=== PATIENT | male | born 1965 | race African-American/Black ===

== ENCOUNTER 2017-03-16 09:09 | Inpatient (IN) | payer MEDICAID ==
[~2017-03-16] VITALS: Ht 175.3 cm; Wt 72.6 kg
[2017-03-16 09:30] VITALS: BP 131/90
[2017-03-16] MEDS ORDERED: Morphine Sulfate 4mg/ml Inj IVP ONE (09:45)
[2017-03-16] MEDS ORDERED: Tubing IV Cassette IV ONE (09:46)
[2017-03-16 10:05] LABS: MEAN CORPUSCULAR HEMOGLOBIN 37.9 PG (27.0-31.0); MEAN CORPUSCULAR HGB CONC 33.9 G/DL (32.0-36.0); MEAN CORPUSCULAR VOLUME 112 FL (80-99); MEAN PLATELET VOLUME 7.7 FL (6.5-10.1); PLATELET COUNT 280 K/UL (150-450); RED BLOOD COUNT 2.69 M/UL (4.70-6.10); RED CELL DISTRIBUTION WIDTH 13.8 % (11.6-14.8); WHITE BLOOD COUNT 13.1 K/UL (4.8-10.8)
[2017-03-16 10:10] LABS: INR 1.1 (0.9-1.1); PROTHROMBIN TIME 11.2 SEC (9.30-11.50)
[2017-03-16] MEDS ORDERED: AMLODIPINE BESYL5 MG ORAL (10:14)
[2017-03-16 10:30] VITALS: BP 137/101
[2017-03-16 10:31] LABS: ALANINE AMINOTRANSFERASE 28 U/L (12-78); ALBUMIN/GLOBULIN RATIO 0.3 (1.0-2.7); ANION GAP 14 mmol/L (5-15); ASPARTATE AMINO TRANSFERASE 65 U/L (15-37); CALCIUM 8.3 MG/DL (8.5-10.1); CARBON DIOXIDE 21 MMOL/L (21-32); CHLORIDE 103 MMOL/L (98-107); CREATININE 2.1 MG/DL (0.55-1.30); GLOMERULAR FILTRATION RATE 40.6 mL/min (>60); LIPASE 374 U/L (73-393); SODIUM 138 MMOL/L (136-145)
[2017-03-16 10:32] LABS: ANISOCYTOSIS 1+; BAND NEUTROPHILS % (MANUAL) 0 % (0-8); BASOPHILS % (MANUAL) 0 % (0-2); EOSINOPHILS % (MANUAL) 3 % (0-3); HYPOCHROMASIA 1+; LYMPHOCYTES % (MANUAL) 23 % (20-45); MACROCYTES 2+; NEUTROPHILS % (MANUAL) 69 % (45-75); PLATELET ESTIMATE ADEQUATE; PLATELET MORPHOLOGY NORMAL; TOTAL CELLS COUNTED 100
[2017-03-16 10:33] LABS: POTASSIUM 2.6 MMOL/L (3.5-5.1)
[2017-03-16 10:36] LABS: BILIRUBIN,DIRECT 4.9 MG/DL (0.0-0.3)
--- NOTE | 2017-03-16 11:41 | Diagnostic Imaging Report ---
Indication: Abdominal distention and pain Technique: Spiral acquisitions obtained through the abdomen and pelvis. No oral contrast utilized, per emergency room physician request No IV contrast utilized, due to renal insufficiency. Multiplanar reconstructions were generated. Total dose length product 670 mGycm. CTDIvol(s) 12 mGy. Dose reduction achieved using automated exposure control Comparison: None Findings: Lack of enteric contrast limits assessment of the GI tract. There is a moderate amount of ascites fluid present. There is mild congestion of the mesenteric fat. The appendix is normal. There is no evidence of diverticulosis or diverticulitis. There is equivocal mild wall thickening of the ascending and proximal transverse colon. There is suggestion of wall thickening of the proximal jejunum, and focally dilated gas-filled jejunal loops are seen in the left anterior upper abdomen. Transition to normal caliber small bowel appears gradual. No free intraperitoneal air is demonstrated. The distal esophagus appears to be diffusely thick walled. The stomach is nondistended, grossly unremarkable. Lack of IV contrast limits assessment of solid organs. The liver is slightly small, demonstrates equivocal slight surface irregularity. No definite focal abnormality The gallbladder contains gallstones. It is nondistended. No gross biliary ductal dilatation. The pancreas, spleen, adrenals, right kidney are unremarkable. Questionable subtle subcentimeter low-attenuation lesion seen in the lower pole of the left kidney No retroperitoneal or mesenteric mass or adenopathy. There are atherosclerotic vascular calcifications. There is mild ectasia of the right common iliac artery, which is nonetheless not frankly aneurysmal. No pelvic mass or adenopathy. There is mild edema of the subcutaneous fat, particularly inferiorly. There is a 13 mm cystic lesion immediately deep to the left nipple. The lung bases demonstrate atelectatic change and possibly some scarring. There is trace right pleural fluid. There is a small to moderate left pleural effusion. The bones are unremarkable. Impression: Equivocally slightly small liver with equivocal slight surface nodularity, could indicate early cirrhotic change. Correlate with clinical history and findings Moderate ascites Other manifestations of mild anasarca, including edema of the mesenteric and subcutaneous fat, trace right and small to moderate left pleural effusions Limited assessment of the GI tract given the absence of enteric contrast administration. There is possibly proximal jejunal wall thickening, which could indicate enteritis. There is focal gaseous distention of a loop of proximal jejunum, also possibly indicating enteritis or could represent a focal ileus. Partial small bowel obstruction as etiology of this finding is deemed less likely but possible Suggestion of ascending and proximal transverse colonic wall thickening, could indicate colitis Cholelithiasis 13 mm cystic lesion immediately deep to the left nipple, presumably a cutaneous lesion such as a sebaceous cyst. Correlate with clinical findings Basilar pulmonary atelectatic changes and possible scarring Questionable subtle left lower pole renal subcentimeter low-attenuation lesion; if real, most likely benign simple cortical cyst. No further followup necessary The CT scanner at [facility] is accredited by the [employer] and the scans are performed using protocols designed to limit radiation exposure to as low as reasonably achievable to attain images of sufficient resolution adequate for diagnostic evaluation.
[2017-03-16 12:00] VITALS: BP 118/83
[2017-03-16 12:09] LABS: APPEARANCE,URINE CLEAR; KETONES,URINE NEGATIVE (NEGATIVE); LEUKOCYTE ESTERASE ,URINE 1+ (NEGATIVE); NITRITE,URINE NEGATIVE (NEGATIVE); PH,URINE 6.5 (4.5-8.0); PROTEIN,URINE 2+ (NEGATIVE); UROBILINOGEN,URINE 8 MG/DL (0.0-1.0)
[2017-03-16 12:51] LABS: BACTERIA,URINE OCCASIONAL /HPF; RBC,URINE 0-2 /HPF (0 - 0); SQUAMOUS EPITHELIAL CELL,UR OCCASIONAL /LPF (NONE/OCC); WBC,URINE 0-2 /HPF (0 - 0)
--- NOTE | 2017-03-16 13:21 | Emergency Room Report ---
History of Present Illness General Chief Complaint: Abdominal Pain Source: Patient Present Illness HPI 51-year-old male presents ED for evaluation. Patient presents with abdominal pain and distention x1 month. Pain is sharp, 6/10, nonradiating. Denies fevers or chills. Denies chest pain shortness of breath. Denies nausea or vomiting. Daughter at bedside states that she is trying to get patient to see a doctor but he refuses. No other aggravating relieving factors. Denies any other associated symptoms Allergies: Coded Allergies: No Known Allergies (Unverified , 03/16/17) Patient History Past Medical History: HTN Past Surgical History: none Pertinent Family History: none Social History: Denies: smoking, alcohol use, drug use Immunizations: UTD Reviewed Nursing Documentation: PMH: Agreed, PSxH: Agreed Nursing Documentation-PMH Hx Hypertension: Yes Review of Systems All Other Systems: negative except mentioned in HPI Physical Exam Vital Signs Date Time Temp Pulse Resp B/P (MAP) Pulse Ox O2 Delivery O2 Flow Rate FiO2 03/16/17 09:11 97.3 110 16 139/92 97 Room Air Sp02 EP Interpretation: reviewed, normal General Appearance: no apparent distress, alert, GCS 15, non-toxic Head: normocephalic, atraumatic Eyes: bilateral eye normal inspection, bilateral eye PERRL, bilateral eye scleral icterus ENT: hearing grossly normal, normal pharynx, no angioedema, normal voice Neck: full range of motion, supple/symm/no masses Respiratory: chest non-tender, lungs clear, normal breath sounds, speaking full sentences Cardiovascular #1: regular rate, rhythm, no edema Cardiovascular #2: 2+ carotid (R), 2+ carotid (L), 2+ radial (R), 2+ radial (L) , 2+ dorsalis pedis (R), 2+ dorsalis pedis (L) Gastrointestinal: normal bowel sounds, no guarding, no rebound, distended Rectal: deferred Genitourinary: normal inspection, no CVA tenderness Musculoskeletal: back normal, gait/station normal, normal range of motion, non- tender Neurologic: alert, oriented x3, responsive, motor strength/tone normal, sensory intact, speech normal Psychiatric: judgement/insight normal, memory normal, mood/affect normal, no suicidal/homicidal ideation Reflexes: 3+ bicep (R), 3+ bicep (L), 3+ tricep (R), 3+ tricep (L), 3+ knee (R) , 3+ knee (L) Skin: normal color, no rash, warm/dry, well hydrated Lymphatic: no adenopathy Medical Decision Making Diagnostic Impression: Primary Impression: Liver cirrhosis Qualified Codes: K74.60 - Unspecified cirrhosis of liver Additional Impressions: Elevated LFTs Renal insufficiency ER Course Hospital Course 51-year-old male presents ED complaining of abdominal pain and distention x1 month Differential diagnoses include: SBO, cirrhosis, ascites Clinical course Patient placed on stretcher. color television console monitor. After initial history and physical I ordered labs, IV fluids, UA, pain medication and CT scan Labs - noted leukocytosis, Hb/Hct stable, K 2.6, LFTs elevated, BUN/Cr elevated , coags ok CT abdomen and pelvis - cirrhotic changes of liver, ascites noted K repleted Case discussed with Dr. Vázquez and he agreed to accept the patient to his service for further care and support I feel this is a highly complex case requiring extensive working including EKG/ Rhythm strip, Xray/CT/US, Blood/urine lab work, repeat exams while in ED, and administration of strong opiates/narcotics for pain control, admission to hospital or close patient follow up. Diagnosis - liver cirrhosis, elevated LFTs, renal insufficiency Patient admitted to floor in serious condition Labs Test 03/16/17 09:25 03/16/17 11:20 White Blood Count 13.1 K/UL (4.8-10.8) Red Blood Count 2.69 M/UL (4.70-6.10) Hemoglobin 10.2 G/DL (14.2-18.0) Hematocrit 30.1 % (42.0-52.0) Mean Corpuscular Volume 112 FL (80-99) Mean Corpuscular Hemoglobin 37.9 PG (27.0-31.0) Mean Corpuscular Hemoglobin Concent 33.9 G/DL (32.0-36.0) Red Cell Distribution Width 13.8 % (11.6-14.8) Platelet Count 280 K/UL (150-450) Mean Platelet Volume 7.7 FL (6.5-10.1) Neutrophils (%) (Auto) % (45.0-75.0) Lymphocytes (%) (Auto) % (20.0-45.0) Monocytes (%) (Auto) % (1.0-10.0) Eosinophils (%) (Auto) % (0.0-3.0) Basophils (%) (Auto) % (0.0-2.0) Differential Total Cells Counted 100 Neutrophils % (Manual) 69 % (45-75) Lymphocytes % (Manual) 23 % (20-45) Monocytes % (Manual) 5 % (1-10) Eosinophils % (Manual) 3 % (0-3) Basophils % (Manual) 0 % (0-2) Band Neutrophils 0 % (0-8) Platelet Estimate Adequate Platelet Morphology Normal Hypochromasia 1+ Anisocytosis 1+ Macrocytosis 2+ Prothrombin Time 11.2 SEC (9.30-11.50) Prothromb Time International Ratio 1.1 (0.9-1.1) Activated Partial Thromboplast Time 31 SEC (23-33) Sodium Level 138 MMOL/L (136-145) Potassium Level 2.6 MMOL/L (3.5-5.1) Chloride Level 103 MMOL/L (98-107) Carbon Dioxide Level 21 MMOL/L (21-32) Anion Gap 14 mmol/L (5-15) Blood Urea Nitrogen 25 mg/dL (7-18) Creatinine 2.1 MG/DL (0.55-1.30) Estimat Glomerular Filtration Rate 40.6 mL/min (>60) Glucose Level 111 MG/DL (74-106) Calcium Level 8.3 MG/DL (8.5-10.1) Total Bilirubin 5.2 MG/DL (0.2-1.0) Direct Bilirubin 4.9 MG/DL (0.0-0.3) Aspartate Amino Transf (AST/SGOT) 65 U/L (15-37) Alanine Aminotransferase (ALT/SGPT) 28 U/L (12-78) Alkaline Phosphatase 56 U/L (46-116) Total Protein 8.0 G/DL (6.4-8.2) Albumin 1.8 G/DL (3.4-5.0) Globulin 6.2 g/dL Albumin/Globulin Ratio 0.3 (1.0-2.7) Lipase 374 U/L (73-393) Urine Color Yellow Urine Appearance Clear Urine pH 6.5 (4.5-8.0) Urine Specific [place] 1.010 (1.005-1.035) Urine Protein 2+ (NEGATIVE) Urine Glucose (UA) Negative (NEGATIVE) Urine Ketones Negative (NEGATIVE) Urine Occult Blood Negative (NEGATIVE) Urine Nitrite Negative (NEGATIVE) Urine Bilirubin Negative (NEGATIVE) Urine Urobilinogen 8 MG/DL (0.0-1.0) Urine Leukocyte Esterase 1+ (NEGATIVE) Urine RBC 0-2 /HPF (0 - 0) Urine WBC 0-2 /HPF (0 - 0) Urine Squamous Epithelial Cells Occasional /LPF Urine Bacteria Occasional /HPF (NONE) CT/MRI/US Diagnostic Results CT/MRI/US Diagnostic Results : Imaging Test Ordered: CT A/P Impression cirrhotic changes of liver. moderate ascites Last Vital Signs Date Time Temp Pulse Resp B/P (MAP) Pulse Ox O2 Delivery O2 Flow Rate FiO2 03/16/17 12:00 88 18 118/83 98 Room Air 03/16/17 10:20 97.4 Status: improved Disposition: ADMITTED INPATIENT Condition: Serious Referrals: NOT CHOSEN CHRISTY/,REFERRING (PCP) LUIS RED M.D. Mar 16, 2017 13:21
--- NOTE | 2017-03-16 14:05 | GI Initial Consult Note ---
History of Present Illness General Date patient seen: Mar 16, 2017 Time patient seen: 13:54 Reason for Hospitalization: Abdominal Pain Referring physician: MERY COATES Reason for Consultation: CIRRHOSIS Present Illness HPI 51-year-old male presents ED for evaluation. Patient presents with abdominal pain and distention x1 month. Pain is sharp, 6/10, nonradiating. Denies fevers or chills. Denies chest pain shortness of breath. Denies nausea or vomiting. Daughter at bedside states that she is trying to get patient to see a doctor but he refuses. No other aggravating relieving factors. Denies any other associated symptoms. GI consulted for liver failure/ascites. HPI as noted above. Pt seen in ED, awake A&Ox4 NAD with no active s/sx of N/V/D. Presented with abdominal pain today. Abdomen is distended, tympanic non tender. CT AP shows cirrhosis, ascites and colitis. Patient denies any diarrhea, constipation. No history of endoscopic / colonoscopies. Presents today with transaminitis, leukocytosis, elevated total bilirubin, elevated creatinine and hypoalbuminemia. Patient states he has a history of ETOH abuse, but has decreased his ETOH for over a month. Home Meds Reported Medications Amlodipine Besylate* (AMLODIPINE BESYLATE*) 5 Mg Tablet, 5 MG ORAL DAILY, TAB 03/16/17 Med list reviewed/reconciled: Yes Allergies: Coded Allergies: No Known Allergies (Unverified , 03/16/17) Patient History History Provided By: Patient Past Medical History: HTN PMH Narrative Past Medical History: HTN Past Surgical History: none Pertinent Family History: none Social History: Denies: smoking, alcohol use, drug use Immunizations: UTD Reviewed Nursing Documentation: PMH: Agreed, PSxH: Agreed Nursing Documentation-PMH Hx Hypertension: Yes Social History: Reports: alcohol use - abuse Review of Systems All Other Systems: negative except mentioned in HPI Physical Exam Vital Signs Date Time Temp Pulse Resp B/P (MAP) Pulse Ox O2 Delivery O2 Flow Rate FiO2 03/16/17 09:11 97.3 110 16 139/92 97 Room Air Sp02 EP Interpretation: reviewed, normal Labs Laboratory Tests Test 03/16/17 09:25 03/16/17 11:20 White Blood Count 13.1 K/UL (4.8-10.8) H Red Blood Count 2.69 M/UL (4.70-6.10) L Hemoglobin 10.2 G/DL (14.2-18.0) L Hematocrit 30.1 % (42.0-52.0) L Mean Corpuscular Volume 112 FL (80-99) H Mean Corpuscular Hemoglobin 37.9 PG (27.0-31.0) H Mean Corpuscular Hemoglobin Concent 33.9 G/DL (32.0-36.0) Red Cell Distribution Width 13.8 % (11.6-14.8) Platelet Count 280 K/UL (150-450) Mean Platelet Volume 7.7 FL (6.5-10.1) Neutrophils (%) (Auto) % (45.0-75.0) Lymphocytes (%) (Auto) % (20.0-45.0) Monocytes (%) (Auto) % (1.0-10.0) Eosinophils (%) (Auto) % (0.0-3.0) Basophils (%) (Auto) % (0.0-2.0) Differential Total Cells Counted 100 Neutrophils % (Manual) 69 % (45-75) Lymphocytes % (Manual) 23 % (20-45) Monocytes % (Manual) 5 % (1-10) Eosinophils % (Manual) 3 % (0-3) Basophils % (Manual) 0 % (0-2) Band Neutrophils 0 % (0-8) Platelet Estimate Adequate Platelet Morphology Normal Hypochromasia 1+ Anisocytosis 1+ Macrocytosis 2+ Prothrombin Time 11.2 SEC (9.30-11.50) Prothromb Time International Ratio 1.1 (0.9-1.1) Activated Partial Thromboplast Time 31 SEC (23-33) Sodium Level 138 MMOL/L (136-145) Potassium Level 2.6 MMOL/L (3.5-5.1) *L Chloride Level 103 MMOL/L (98-107) Carbon Dioxide Level 21 MMOL/L (21-32) Anion Gap 14 mmol/L (5-15) Blood Urea Nitrogen 25 mg/dL (7-18) H Creatinine 2.1 MG/DL (0.55-1.30) H Estimat Glomerular Filtration Rate 40.6 mL/min (>60) Glucose Level 111 MG/DL (74-106) H Calcium Level 8.3 MG/DL (8.5-10.1) L Total Bilirubin 5.2 MG/DL (0.2-1.0) H Direct Bilirubin 4.9 MG/DL (0.0-0.3) H Aspartate Amino Transf (AST/SGOT) 65 U/L (15-37) H Alanine Aminotransferase (ALT/SGPT) 28 U/L (12-78) Alkaline Phosphatase 56 U/L (46-116) Total Protein 8.0 G/DL (6.4-8.2) Albumin 1.8 G/DL (3.4-5.0) L Globulin 6.2 g/dL Albumin/Globulin Ratio 0.3 (1.0-2.7) L Lipase 374 U/L (73-393) Urine Color Yellow Urine Appearance Clear Urine pH 6.5 (4.5-8.0) Urine Specific [place] 1.010 (1.005-1.035) Urine Protein 2+ (NEGATIVE) H Urine Glucose (UA) Negative (NEGATIVE) Urine Ketones Negative (NEGATIVE) Urine Occult Blood Negative (NEGATIVE) Urine Nitrite Negative (NEGATIVE) Urine Bilirubin Negative (NEGATIVE) Urine Urobilinogen 8 MG/DL (0.0-1.0) H Urine Leukocyte Esterase 1+ (NEGATIVE) H Urine RBC 0-2 /HPF (0 - 0) H Urine WBC 0-2 /HPF (0 - 0) Urine Squamous Epithelial Cells Occasional /LPF Urine Bacteria Occasional /HPF (NONE) General Appearance: well appearing, no apparent distress, alert, thin Head: normocephalic EENT: PERRL/EOMI, normal ENT inspection, other - juandice eyes Neck: supple Respiratory: normal breath sounds, no respiratory distress Cardiovascular: normal rate Gastrointestinal: normal inspection, non tender, soft, normal bowel sounds, distended, ascites, other - tympanic Rectal: deferred Genitourinary: deferred Musculoskeletal: normal inspection, back normal Neurologic: normal inspection, alert, oriented x3, responsive Psychiatric: normal inspection, judgement/insight normal, memory normal Skin: normal inspection, normal color, no rash, warm/dry, palpation normal, well hydrated Lymphatic: normal inspection, no adenopathy GI: Plan Problems: (1) Ascites (2) Anemia (3) Liver cirrhosis (4) Elevated LFTs Plan CT AP reviewed, see full report. - ascites - cirrhosis - colitis lipase WNL okay for low sodium diet, NPO @ MN for abdominal U/S & paracentesis if not done today. albumin x 1 anemia work up OB stool r/o GI bleed monitor H&H, prn transfusions bowel regime >> colace, miralax ppi abx fu labs, hep panel outpatient EGD/colonoscopy Discussed with Dr. Roman. Thank you for this patient referral, we will follow. Angie Syed N.P. Mar 16, 2017 14:05
[2017-03-16 16:00] VITALS: BP 126/91
[2017-03-16 16:34] LABS: PATH BLOOD SMEAR/OMC SENT TO PATHOLOGIST
[2017-03-16] MEDS ORDERED: Lactulose 20gm/30ml UDC ORAL SCH (18:00)
[2017-03-16] MEDS: 1/2NS w/KCl 20mEq 1000ml 1,000 ML IV SCH (18:54)
[2017-03-16] MEDS: Docusate 100mg cap ORAL SCH (18:54)
[2017-03-16 19:57] VITALS: BP 96/67
[2017-03-16] MEDS ORDERED: Piperacillin/Tazobactam 3.375 GM in D5W 110 ML IVPB SCH (20:00)
[2017-03-16] MEDS: Miralax 17gm pkt ORAL SCH (20:20)
[2017-03-17] VITALS (7 sets, daily range): BP systolic 109–134; BP diastolic 68–88
[2017-03-17] MEDS: Piperacillin/Tazobactam 3.375 GM in D5W 55 ML IVPB SCH ×3 (01:39→20:31)
[2017-03-17 07:08] LABS: MEAN CORPUSCULAR HEMOGLOBIN 38.3 PG (27.0-31.0); MEAN CORPUSCULAR VOLUME 113 FL (80-99); MEAN PLATELET VOLUME 7.5 FL (6.5-10.1); PLATELET COUNT 204 K/UL (150-450); RED BLOOD COUNT 2.15 M/UL (4.70-6.10); RED CELL DISTRIBUTION WIDTH 13.6 % (11.6-14.8); WHITE BLOOD COUNT 11.6 K/UL (4.8-10.8)
[2017-03-17 07:21] LABS: HEMOGLOBIN A1C 4.9 % (4.3-6.0)
[2017-03-17 07:41] LABS: MAGNESIUM 1.6 MG/DL (1.8-2.4); PHOSPHORUS 2.8 MG/DL (2.5-4.9)
[2017-03-17] MEDS: 1/2NS w/KCl 20mEq 1000ml 1,000 ML IV SCH (07:50)
[2017-03-17 08:01] LABS: ANISOCYTOSIS 1+; BAND NEUTROPHILS % (MANUAL) 0 % (0-8); BASOPHILS % (MANUAL) 0 % (0-2); EOSINOPHILS % (MANUAL) 1 % (0-3); HYPOCHROMASIA 2+; LYMPHOCYTES % (MANUAL) 17 % (20-45); MACROCYTES 2+; NEUTROPHILS % (MANUAL) 75 % (45-75); PLATELET ESTIMATE ADEQUATE; PLATELET MORPHOLOGY NORMAL; TOTAL CELLS COUNTED 100
[2017-03-17 08:07] LABS: FOLIC ACID 6.2 NG/ML (8.6-58.9); IRON 27 ug/dL (50-175); TOTAL IRON BINDING CAPACITY 75 ug/dL (250-450)
[2017-03-17 08:23] LABS: ALANINE AMINOTRANSFERASE 21 U/L (12-78); ALBUMIN/GLOBULIN RATIO 0.4 (1.0-2.7); ANION GAP 10 mmol/L (5-15); ASPARTATE AMINO TRANSFERASE 41 U/L (15-37); CALCIUM 7.4 MG/DL (8.5-10.1); CARBON DIOXIDE 19 MMOL/L (21-32); CHLORIDE 106 MMOL/L (98-107); CHOLESTEROL 118 MG/DL (< 200); CHOLESTEROL/HDL RATIO 7.4 (3.3-4.4); CREATININE 2.1 MG/DL (0.55-1.30); FERRITIN 714 NG/ML (8-388); GLOMERULAR FILTRATION RATE 40.6 mL/min (>60); POTASSIUM 3.7 MMOL/L (3.5-5.1); SODIUM 135 MMOL/L (136-145); THYROID STIMULATING HORMONE 1.407 uiU/mL (0.358-3.740); TOTAL PROTEIN 5.9 G/DL (6.4-8.2)
[2017-03-17 08:25] LABS: BILIRUBIN,DIRECT 0.1 MG/DL (0.0-0.3)
[2017-03-17 08:40] LABS: RETICULOCYTE COUNT 2.9 % (0.0-2.0)
[2017-03-17] MEDS: Docusate 100mg cap ORAL SCH ×3 (08:51→17:57)
--- NOTE | 2017-03-17 08:58 | Diagnostic Imaging Report ---
Indications: Ascites Technique: Procedural timeout performed. Ultrasound used to localize optimal puncture site. Sterile prepping and draping right lower quadrant . Local anesthesia with 1% lidocaine. Under real-time ultrasound guidance, puncture peritoneal space using paracentesis needle. Stylet removed. Catheter placed to vacuum bottle suction. Total 4.7 liters of clear yellow fluid aspirated. Patient tolerated procedure well, without immediate complication. Findings: Followup sonography demonstrates complete resolution of peritoneal fluid. Impression: Successful ultrasound-guided paracentesis, yielding 4.7 liters of fluid
--- NOTE | 2017-03-17 10:26 | Consultation ---
Consult Note Consult Note asked to evaluate for renal failure- 51-year-old male presents ED for evaluation. Patient presents with abdominal pain and distention x1 month. Pain is sharp, 6/10, nonradiating. Denies fevers or chills. Denies chest pain shortness of breath. Denies nausea or vomiting. Daughter at bedside states that she is trying to get patient to see a doctor but he refuses. No other aggravating relieving factors. Denies any other associated symptoms patient interviewed and examined- data reviewed . Assessment/Plan Status; Renal failure : Acute vs Chronic - Liver cirrhosis, high Bili , Low Alb Elevated LFTs HTN history Evidence of hepatic cirrhosis, with surface micro-nodularity, also reported on prior CT scan Evidence of portal hypertension, with large amount of ascites, anterior abdominal wall varices Cholelithiasis also reported on prior CT. Plan: Optimize GI status Monitor renal paraameters Urine studies kidney TUAN urine studies GILBERTO HAYES Mar 17, 2017 10:25
[2017-03-17 10:28] LABS: OTHERS PATHOLOGIST COMMENT
--- NOTE | 2017-03-17 11:02 | GI Progress Note ---
Assessment/Plan Problems: (1) Ascites ICD Codes: R18.8 - Other ascites SNOMED: 678381267 (2) Anemia ICD Codes: D64.9 - Anemia, unspecified SNOMED: 779279625 (3) Elevated LFTs ICD Codes: R79.89 - Other specified abnormal findings of blood chemistry SNOMED: 912967030, 794287229 (4) Liver cirrhosis ICD Codes: K74.60 - Unspecified cirrhosis of liver SNOMED: 11798431 Qualifiers: Qualified Codes: K74.60 - Unspecified cirrhosis of liver Status: stable Status Narrative Discussed with Dr. Roman. Assessment/Plan CT AP reviewed, see full report. - ascites - cirrhosis - colitis lipase WNL s/p paracentesis yielding 4.4L >> r/o SBP OB stool negative supportive care monitor H&H, prn transfusions bowel regime >> colace, miralax ppi abx fu labs ETOH cessation teaching given outpatient EGD/colonoscopy dc planning Subjective Subjective abdominal pain resolved wants to go home Objective Last 24 Hour Vital Signs Date Time Temp Pulse Resp B/P (MAP) Pulse Ox O2 Delivery O2 Flow Rate FiO2 03/17/17 08:00 97.8 74 12 115/75 99 Room Air 03/17/17 04:00 98.2 94 20 121/73 99 Room Air 03/17/17 04:00 Room Air 03/17/17 00:00 Room Air 03/17/17 00:00 99.8 86 18 125/83 100 Room Air 03/16/17 20:00 Room Air 03/16/17 19:57 98.9 92 18 96/67 99 Room Air 03/16/17 16:00 97.7 86 20 126/91 99 03/16/17 13:35 97.4 88 18 118/83 98 Room Air 03/16/17 12:00 88 18 118/83 98 Room Air Laboratory Tests Test 03/16/17 11:20 03/16/17 16:17 03/16/17 20:45 03/16/17 22:40 Urine Color Yellow Urine Appearance Clear Urine pH 6.5 (4.5-8.0) Urine Specific [place] 1.010 (1.005-1.035) Urine Protein 2+ (NEGATIVE) H Urine Glucose (UA) Negative (NEGATIVE) Urine Ketones Negative (NEGATIVE) Urine Occult Blood Negative (NEGATIVE) Urine Nitrite Negative (NEGATIVE) Urine Bilirubin Negative (NEGATIVE) Urine Urobilinogen 8 MG/DL (0.0-1.0) H Urine Leukocyte Esterase 1+ (NEGATIVE) H Urine RBC 0-2 /HPF (0 - 0) H Urine WBC 0-2 /HPF (0 - 0) Urine Squamous Epithelial Cells Occasional /LPF Urine Bacteria Occasional /HPF (NONE) Body Fluid Albumin Pending Urine Random Sodium 38 MEQ/L (20-110) Stool Occult Blood Negative (NEGATIVE) Test 03/17/17 05:15 White Blood Count 11.6 K/UL (4.8-10.8) H Red Blood Count 2.15 M/UL (4.70-6.10) L Hemoglobin 8.2 G/DL (14.2-18.0) L Hematocrit 24.3 % (42.0-52.0) L Mean Corpuscular Volume 113 FL (80-99) H Mean Corpuscular Hemoglobin 38.3 PG (27.0-31.0) H Mean Corpuscular Hemoglobin Concent 34.0 G/DL (32.0-36.0) Red Cell Distribution Width 13.6 % (11.6-14.8) Platelet Count 204 K/UL (150-450) Mean Platelet Volume 7.5 FL (6.5-10.1) Neutrophils (%) (Auto) % (45.0-75.0) Lymphocytes (%) (Auto) % (20.0-45.0) Monocytes (%) (Auto) % (1.0-10.0) Eosinophils (%) (Auto) % (0.0-3.0) Basophils (%) (Auto) % (0.0-2.0) Differential Total Cells Counted 100 Neutrophils % (Manual) 75 % (45-75) Lymphocytes % (Manual) 17 % (20-45) L Monocytes % (Manual) 7 % (1-10) Eosinophils % (Manual) 1 % (0-3) Basophils % (Manual) 0 % (0-2) Band Neutrophils 0 % (0-8) Platelet Estimate Adequate Platelet Morphology Normal Hypochromasia 2+ Anisocytosis 1+ Macrocytosis 2+ Reticulocyte Count 2.9 % (0.0-2.0) H Sodium Level 135 MMOL/L (136-145) L Potassium Level 3.7 MMOL/L (3.5-5.1) Chloride Level 106 MMOL/L (98-107) Carbon Dioxide Level 19 MMOL/L (21-32) L Anion Gap 10 mmol/L (5-15) Blood Urea Nitrogen 22 mg/dL (7-18) H Creatinine 2.1 MG/DL (0.55-1.30) H Estimat Glomerular Filtration Rate 40.6 mL/min (>60) Glucose Level 97 MG/DL (74-106) Hemoglobin A1c 4.9 % (4.3-6.0) Calcium Level 7.4 MG/DL (8.5-10.1) L Phosphorus Level 2.8 MG/DL (2.5-4.9) Magnesium Level 1.6 MG/DL (1.8-2.4) L Iron Level 27 ug/dL (50-175) L Total Iron Binding Capacity 75 ug/dL (250-450) L Percent Iron Saturation 36 % (15-50) Unsaturated Iron Binding 48 ug/dL (112-346) L Ferritin 714 NG/ML (8-388) H Total Bilirubin 3.4 MG/DL (0.2-1.0) H Direct Bilirubin 0.1 MG/DL (0.0-0.3) Gamma Glutamyl Transpeptidase 286 U/L (5-85) H Aspartate Amino Transf (AST/SGOT) 41 U/L (15-37) H Alanine Aminotransferase (ALT/SGPT) 21 U/L (12-78) Alkaline Phosphatase 53 U/L (46-116) Total Creatine Kinase 33 U/L (26-308) C-Reactive Protein, Quantitative 3.0 mg/dL (0.00-0.90) H Pro-B-Type Natriuretic Peptide 1335 pg/mL (0-125) H Total Protein 5.9 G/DL (6.4-8.2) L Albumin 1.6 G/DL (3.4-5.0) L Globulin 4.3 g/dL Albumin/Globulin Ratio 0.4 (1.0-2.7) L Triglycerides Level 85 MG/DL (30-150) Cholesterol Level 118 MG/DL (< 200) LDL Cholesterol 93 mg/dL (<100) HDL Cholesterol 16 MG/DL (40-60) L Cholesterol/HDL Ratio 7.4 (3.3-4.4) H Vitamin B12 Level 883 PG/ML (193-986) Folate 6.2 NG/ML (8.6-58.9) L Thyroid Stimulating Hormone (TSH) 1.407 uiU/mL (0.358-3.740) Free Thyroxine < 0.10 NG/DL (0.76-1.46) L Microbiology Date/Time Source Procedure Growth Status 03/16/17 16:17 Ascities Fluid Gram Stain - Final Resulted 03/16/17 16:17 Ascities Fluid Body Fluid Culture Pending Resulted Height (Feet): 5 Height (Inches): 9.00 Weight (Pounds): 160 General Appearance: WD/WN, no apparent distress, alert Cardiovascular: normal rate Respiratory/Chest: normal breath sounds, no respiratory distress Abdominal Exam: normal bowel sounds, non tender, soft Extremities: normal range of motion, non-tender Angie Syed N.P. Mar 17, 2017 11:02
[2017-03-17] MEDS: D5NS 1,000 ML IV SCH (11:56)
--- NOTE | 2017-03-17 12:23 | Diagnostic Imaging Report ---
Indication: Abdominal distention, abnormal liver function tests Technique: Mead-scale and duplex images of the upper abdomen were obtained Comparison: CT abdomen pelvis earlier the same day Findings: There is a large amount of ascites fluid. There is also a left pleural effusion incidentally noted. Gallbladder is contracted. It contains multiple echogenic foci which do not shadow but most likely represent calculi. There is apparent gallbladder wall thickening, gallbladder wall measuring 8 mm thick, although this is likely at least in part due to lack of distention. Sonographic Cavazos's sign is negative. Common bile duct measures 3 mm in diameter. No intrahepatic biliary ductal dilatation. Liver demonstrates normal echogenicity. However, there are surface micro-nodularities noted. In addition, anterior abdominal wall varices are demonstrated. Portal vein and hepatic veins are patent. Pancreas is unremarkable. Spleen is unremarkable. Left kidney measures 8.1 cm in length. Right kidney measures 10.5 cm length. Both kidneys demonstrate normal echogenicity. There is no hydronephrosis. No focal abnormality . Non-aneurysmal abdominal aorta . Impression: Evidence of hepatic cirrhosis, with surface micro-nodularity, also reported on prior CT scan Evidence of portal hypertension, with large amount of ascites, anterior abdominal wall varices Cholelithiasis also reported on prior CT. Gallbladder wall thickening is probably partially artifact of nondistention, partially wall edema secondary to the hemodynamic derangements related to hepatocellular disease. However, acute cholecystitis is not completely excludable, and correlation with findings is recommended. Consider hepatobiliary nuclear scan for further evaluation if there is high clinical suspicion Negative for dilated ducts
--- NOTE | 2017-03-17 17:45 | Consultation ---
DATE OF CONSULTATION: 03/17/2017 INFECTIOUS DISEASE CONSULTATION CONSULTING PHYSICIAN: Juan Pablo Hooper M.D. PRIMARY ATTENDING PHYSICIAN: Asha Vázquez M.D. REASON FOR CONSULT: Leukocytosis and ascites. HISTORY OF PRESENT ILLNESS: This is a 51-year-old male, admitted yesterday from home. The patient had a gradual increase in size of belly in the past month. He states that he recently quit alcohol. He has abdominal pain and distention, but no fever. No chills. No other symptoms. He had mild leukocytosis in the ER, elevation of bilirubin, and decreased albumin. CT scan showed ascites. The patient had paracentesis and removal of 4.7 liters of ascitic fluid. PAST MEDICAL HISTORY: Significant for hypertension. PAST SURGICAL HISTORY: He had no surgery before. MEDICATIONS: Zosyn, magnesium sulfate, Protonix, MiraLax, and Colace. SOCIAL HISTORY: Smokes cigar. He states that he quit alcohol recently. He is single. PHYSICAL EXAMINATION: VITAL SIGNS: Temperature 97.8 degrees, pulse 74, and blood pressure is 115/75. GENERAL APPEARANCE: No acute distress. Awake, alert, and oriented x3. HEAD AND NECK: [place] conjunctivae. HEART: Regular. LUNGS: Clear. ABDOMEN: Distended with ascites. EXTREMITIES: He has no edema. LABORATORY AND DIAGNOSTIC DATA: Sodium 135, potassium 3.7, chloride 106, bicarbonate 18, BUN 22, creatinine 2.1, and glucose is 97. Bilirubin is 3.4, coming down from 5.2. Albumin is 1.6. CT scan of the abdomen and pelvis showed cholelithiasis, ascites that was moderate, small liver with surface nodularity, and questionable colitis. IMPRESSION: Alcoholic cirrhosis with ascites. The patient has mild leukocytosis. We will try to rule out spontaneous bacterial peritonitis. Although the patient has some colitis evidence on CT scan, he does not have any clinical sign of colitis. The patient has acute renal failure, anemia, decreased albumin, and hypokalemia. RECOMMENDATION: We will continue Zosyn. We will follow up the peritoneal fluid culture. If the culture remains negative, we will stop antibiotics soon. We will ask for hepatitis B and C serology. At the end of my exam, I thank Dr. Vázquez for involving me in the care of this patient. Juan Pablo Hooper M.D. DR: Bk JOB#: [id number] CC:
[2017-03-17] MEDS: Miralax 17gm pkt ORAL SCH (20:32)
--- NOTE | 2017-03-17 23:15 | History and Physical Report ---
DATE OF ADMISSION: 03/16/2017 REASON FOR ADMISSION: Hypokalemia, acute renal failure, and elevated total bilirubin. HISTORY OF PRESENT ILLNESS: The patient has liver failure, most likely cirrhosis due to alcohol abuse. CT showed ascites. The patient also has leukocytosis. I asked him what is the reason for coming in to the hospital. He stated that he had abdominal pain and he had worsening swelling in his abdomen. Denies shortness of breath. Denies cough. Denies nausea, vomiting, or diarrhea. He does have also chronic back pain. Denies fever or chills. PAST MEDICAL HISTORY: liver cirrhosis, renal insufficiency, elevated LFTs, anemia, ascites, history of hyponatremia, and hypertension. Also, chronic back pain. . PAST SURGICAL HISTORY: None. MEDICATIONS: Norvasc. ALLERGIES: No known allergies. SOCIAL HISTORY: History of drug and alcohol abuse and history of smoking. FAMILY HISTORY: Noncontributory. REVIEW OF SYSTEMS: HEENT: Denies headaches. RESPIRATORY: Denies shortness of breath. Denies cough. CARDIOVASCULAR: Denies chest pain. No orthopnea. GASTROINTESTINAL: Reports mild abdominal pain and worsening abdominal swelling. Denies diarrhea. Denies vomiting. Denies nausea. EXTREMITIES: He does have chronic back pain. NEUROLOGIC: Significant change in speech pattern. PHYSICAL EXAMINATION: VITAL SIGNS: Temperature 97.7 degrees, pulse is 86, and blood pressure 126/91. HEENT: PERRLA. NECK: Supple. No lymphadenopathy. CHEST: Clear to auscultation. HEART: No murmurs or extra sounds. GASTROINTESTINAL: Abdomen is distended. He has positive fluid wave. Otherwise, abdomen is soft. Positive bowel sounds. EXTREMITIES: No edema. Reflexes equal on both sides. He is able to move all four extremities. LABORATORY STUDIES: WBC of 14.1, hemoglobin 10.2, and platelets of 280,000. Sodium 138, potassium 2.6, BUN of 25, creatinine 2.5, and glucose of 111. Total bilirubin of 5.2. AST of 65 and ALT of 28. ASSESSMENT AND PLAN: Severe hypokalemia, ascites, alcoholic cirrhosis, acute renal failure, most likely due to dehydration as well as leukocytosis. I have asked Dr. Roman, Dr. Dai, and Dr. Magallanes to see the patient for above-mentioned diagnoses and treatment. Antibiotics per Dr. Delia Dai or his associate. Asha Vázquez M.D. DR: Jeff JOB#: [id number] CC:
[2017-03-18 03:57] VITALS: BP 120/79
[2017-03-18] MEDS: D5NS 1,000 ML IV SCH (07:30)
[2017-03-18 07:58] LABS: ANION GAP 11 mmol/L (5-15); CALCIUM 7.5 MG/DL (8.5-10.1); CARBON DIOXIDE 19 MMOL/L (21-32); CHLORIDE 104 MMOL/L (98-107); GLOMERULAR FILTRATION RATE 42.9 mL/min (>60); MAGNESIUM 1.8 MG/DL (1.8-2.4); MEAN CORPUSCULAR HEMOGLOBIN 38.8 PG (27.0-31.0); MEAN CORPUSCULAR HGB CONC 34.2 G/DL (32.0-36.0); MEAN CORPUSCULAR VOLUME 114 FL (80-99); MEAN PLATELET VOLUME 7.8 FL (6.5-10.1); PLATELET COUNT 206 K/UL (150-450); POTASSIUM 3.9 MMOL/L (3.5-5.1); RED BLOOD COUNT 2.27 M/UL (4.70-6.10); RED CELL DISTRIBUTION WIDTH 13.5 % (11.6-14.8); SODIUM 134 MMOL/L (136-145); WHITE BLOOD COUNT 14.5 K/UL (4.8-10.8)
[2017-03-18 08:15] VITALS: BP 112/85
[2017-03-18 08:29] LABS: HYPOCHROMASIA 1+; MACROCYTES 1+; PLATELET ESTIMATE ADEQUATE; PLATELET MORPHOLOGY NORMAL
[2017-03-18 08:34] LABS: EOSINOPHILS % (MANUAL) 5 % (0-3); LYMPHOCYTES % (MANUAL) 12 % (20-45); NEUTROPHILS % (MANUAL) 72 % (45-75); TOTAL CELLS COUNTED 100
[2017-03-18 08:36] LABS: BAND NEUTROPHILS % (MANUAL) 0 % (0-8); BASOPHILS % (MANUAL) 0 % (0-2)
[2017-03-18] MEDS: Docusate 100mg cap ORAL SCH ×3 (09:07→17:02)
[2017-03-18] MEDS: Piperacillin/Tazobactam 3.375 GM in D5W 55 ML IVPB SCH (10:17)
--- NOTE | 2017-03-18 10:18 | GI Progress Note ---
Assessment/Plan Problems: (1) Ascites ICD Codes: R18.8 - Other ascites SNOMED: 146640331 (2) Anemia ICD Codes: D64.9 - Anemia, unspecified SNOMED: 409143418 (3) Elevated LFTs ICD Codes: R79.89 - Other specified abnormal findings of blood chemistry SNOMED: 372616012, 574251939 (4) Liver cirrhosis ICD Codes: K74.60 - Unspecified cirrhosis of liver SNOMED: 01707004 Qualifiers: Qualified Codes: K74.60 - Unspecified cirrhosis of liver Status: stable Status Narrative Discussed with Dr. Roman. Assessment/Plan CT AP reviewed, see full report. - ascites - cirrhosis - colitis abdominal U/S reviewed >> Evidence of hepatic cirrhosis. Evidence of portal hypertension, with large amount of ascites, anterior abdominal wall varices. lipase WNL s/p paracentesis yielding 4.4L >> r/o SBP OB stool negative hep panel negative supportive care dc home med norvasc 5mg >> start propranolol 10mg BID >> titrate prn SBP >100 HR >60 monitor H&H, prn transfusions bowel regime >> colace, miralax ppi abx fu labs ETOH cessation teaching given recommend outpatient EGD/colonoscopy dc planning Subjective Subjective abdominal pain resolved Objective Last 24 Hour Vital Signs Date Time Temp Pulse Resp B/P (MAP) Pulse Ox O2 Delivery O2 Flow Rate FiO2 03/18/17 08:15 97.3 88 21 112/85 97 Room Air 03/18/17 03:57 97.6 87 20 120/79 99 Room Air 03/17/17 23:18 98.2 93 20 115/73 100 Room Air 03/17/17 20:17 97.6 87 20 134/88 100 Room Air 03/17/17 16:15 98.2 89 20 126/88 100 03/17/17 12:00 98.0 77 12 109/68 97 Room Air Intake and Output 03/18/17 03/19/17 19:00 07:00 Intake Total 240 ml Balance 240 ml Intake Oral 240 ml Laboratory Tests Test 03/17/17 12:00 03/18/17 06:21 03/18/17 08:00 Urine Random Sodium 20 MEQ/L (20-110) White Blood Count 14.5 K/UL (4.8-10.8) H Red Blood Count 2.27 M/UL (4.70-6.10) L Hemoglobin 8.8 G/DL (14.2-18.0) L Hematocrit 25.8 % (42.0-52.0) L Mean Corpuscular Volume 114 FL (80-99) H Mean Corpuscular Hemoglobin 38.8 PG (27.0-31.0) H Mean Corpuscular Hemoglobin Concent 34.2 G/DL (32.0-36.0) Red Cell Distribution Width 13.5 % (11.6-14.8) Platelet Count 206 K/UL (150-450) Mean Platelet Volume 7.8 FL (6.5-10.1) Neutrophils (%) (Auto) % (45.0-75.0) Lymphocytes (%) (Auto) % (20.0-45.0) Monocytes (%) (Auto) % (1.0-10.0) Eosinophils (%) (Auto) % (0.0-3.0) Basophils (%) (Auto) % (0.0-2.0) Differential Total Cells Counted 100 Neutrophils % (Manual) 72 % (45-75) Lymphocytes % (Manual) 12 % (20-45) L Monocytes % (Manual) 11 % (1-10) H Eosinophils % (Manual) 5 % (0-3) H Basophils % (Manual) 0 % (0-2) Band Neutrophils 0 % (0-8) Platelet Estimate Adequate Platelet Morphology Normal Hypochromasia 1+ Macrocytosis 1+ Sodium Level 134 MMOL/L (136-145) L Potassium Level 3.9 MMOL/L (3.5-5.1) Chloride Level 104 MMOL/L (98-107) Carbon Dioxide Level 19 MMOL/L (21-32) L Anion Gap 11 mmol/L (5-15) Blood Urea Nitrogen 18 mg/dL (7-18) Creatinine 2.0 MG/DL (0.55-1.30) H Estimat Glomerular Filtration Rate 42.9 mL/min (>60) Glucose Level 89 MG/DL (74-106) Calcium Level 7.5 MG/DL (8.5-10.1) L Magnesium Level 1.8 MG/DL (1.8-2.4) Urine Eosinophils Pending Height (Feet): 5 Height (Inches): 9.00 Weight (Pounds): 160 General Appearance: WD/WN, no apparent distress, alert, thin Cardiovascular: normal rate Respiratory/Chest: normal breath sounds, no respiratory distress Abdominal Exam: normal bowel sounds, non tender, soft, distended, ascites Extremities: normal range of motion, non-tender Angie Syed N.P. Mar 18, 2017 10:18
[2017-03-18 12:15] VITALS: BP 127/84
--- NOTE | 2017-03-18 12:48 | Nephrology Progress Note ---
Assessment/Plan Problem List: (1) Renal insufficiency (2) Liver cirrhosis (3) Anemia (4) Ascites Assessment Renal failure : Acute vs Chronic - Liver cirrhosis, high Bili , Low Alb Elevated LFTs HTN history Evidence of hepatic cirrhosis, with surface micro-nodularity, also reported on prior CT scan Evidence of portal hypertension, with large amount of ascites, anterior abdominal wall varices Cholelithiasis also reported on prior CT. Plan Plan: Optimize GI status Monitor renal paraameters Urine studies kidney TUAN negative on abdominal TUAN urine studies Subjective ROS Limited/Unobtainable: No Constitutional: Reports: malaise Objective Objective Last 24 Hour Vital Signs Date Time Temp Pulse Resp B/P (MAP) Pulse Ox O2 Delivery O2 Flow Rate FiO2 03/18/17 08:15 97.3 88 21 112/85 97 Room Air 03/18/17 03:57 97.6 87 20 120/79 99 Room Air 03/17/17 23:18 98.2 93 20 115/73 100 Room Air 03/17/17 20:17 97.6 87 20 134/88 100 Room Air 03/17/17 16:15 98.2 89 20 126/88 100 Intake and Output 03/18/17 03/19/17 19:00 07:00 Intake Total 240 ml Balance 240 ml Intake Oral 240 ml Laboratory Tests 03/18/17 06:21: White Blood Count 14.5H, Red Blood Count 2.27L, Hemoglobin 8.8L, Hematocrit 25.8L, Mean Corpuscular Volume 114H, Mean Corpuscular Hemoglobin 38.8H, Mean Corpuscular Hemoglobin Concent 34.2, Red Cell Distribution Width 13.5, Platelet Count 206, Mean Platelet Volume 7.8, Neutrophils (%) (Auto) , Lymphocytes (%) ( Auto) , Monocytes (%) (Auto) , Eosinophils (%) (Auto) , Basophils (%) (Auto) , Differential Total Cells Counted 100, Neutrophils % (Manual) 72, Lymphocytes % ( Manual) 12L, Monocytes % (Manual) 11H, Eosinophils % (Manual) 5H, Basophils % ( Manual) 0, Band Neutrophils 0, Platelet Estimate Adequate, Platelet Morphology Normal, Hypochromasia 1+, Macrocytosis 1+, Sodium Level 134L, Potassium Level 3.9, Chloride Level 104, Carbon Dioxide Level 19L, Anion Gap 11, Blood Urea Nitrogen 18, Creatinine 2.0H, Estimat Glomerular Filtration Rate 42.9, Glucose Level 89, Calcium Level 7.5L, Magnesium Level 1.8 03/18/17 08:00: Urine Eosinophils None seen Height (Feet): 5 Height (Inches): 9.00 Weight (Pounds): 160 General Appearance: no apparent distress Cardiovascular: regular rhythm Respiratory/Chest: decreased breath sounds Abdomen: distended Objective no other changes GILBERTO HAYES Mar 18, 2017 12:48
--- NOTE | 2017-03-18 13:16 | Infectious Diseases Prog Note ---
Assessment/Plan Assessment/Plan A; Leukocytosis Alcoholic cirrhosis Portal HPN Ascites Renal failure Anemia P; Discontinue Zosyn will f/u cultures Subjective ROS Limited/Unobtainable: No Constitutional: Reports: no symptoms Respiratory: Reports: no symptoms Cardiovascular: Reports: no symptoms Gastrointestinal/Abdominal: Reports: diarrhea Genitourinary: Reports: no symptoms Allergies: Coded Allergies: No Known Allergies (Unverified , 03/16/17) Objective Vital Signs Last 24 Hour Vital Signs Date Time Temp Pulse Resp B/P (MAP) Pulse Ox O2 Delivery O2 Flow Rate FiO2 03/18/17 12:15 98.1 89 22 127/84 100 Room Air 03/18/17 08:15 97.3 88 21 112/85 97 Room Air 03/18/17 03:57 97.6 87 20 120/79 99 Room Air 03/17/17 23:18 98.2 93 20 115/73 100 Room Air 03/17/17 20:17 97.6 87 20 134/88 100 Room Air 03/17/17 16:15 98.2 89 20 126/88 100 Height (Feet): 5 Height (Inches): 9.00 Weight (Pounds): 160 General Appearance: no acute distress HEENT: mucous membranes moist Respiratory/Chest: lungs clear Cardiovascular: normal rate Abdomen: distended, other - ascites Extremities: no edema Neurologic/Psychiatric: alert, oriented x 3, responsive Microbiology Date/Time Source Procedure Growth Status 03/16/17 16:17 Ascities Fluid Gram Stain - Final Resulted 03/16/17 16:17 Ascities Fluid Body Fluid Culture - Preliminary Resulted Laboratory Tests Test 03/18/17 06:21 03/18/17 08:00 White Blood Count 14.5 K/UL (4.8-10.8) H Red Blood Count 2.27 M/UL (4.70-6.10) L Hemoglobin 8.8 G/DL (14.2-18.0) L Hematocrit 25.8 % (42.0-52.0) L Mean Corpuscular Volume 114 FL (80-99) H Mean Corpuscular Hemoglobin 38.8 PG (27.0-31.0) H Mean Corpuscular Hemoglobin Concent 34.2 G/DL (32.0-36.0) Red Cell Distribution Width 13.5 % (11.6-14.8) Platelet Count 206 K/UL (150-450) Mean Platelet Volume 7.8 FL (6.5-10.1) Neutrophils (%) (Auto) % (45.0-75.0) Lymphocytes (%) (Auto) % (20.0-45.0) Monocytes (%) (Auto) % (1.0-10.0) Eosinophils (%) (Auto) % (0.0-3.0) Basophils (%) (Auto) % (0.0-2.0) Differential Total Cells Counted 100 Neutrophils % (Manual) 72 % (45-75) Lymphocytes % (Manual) 12 % (20-45) L Monocytes % (Manual) 11 % (1-10) H Eosinophils % (Manual) 5 % (0-3) H Basophils % (Manual) 0 % (0-2) Band Neutrophils 0 % (0-8) Platelet Estimate Adequate Platelet Morphology Normal Hypochromasia 1+ Macrocytosis 1+ Sodium Level 134 MMOL/L (136-145) L Potassium Level 3.9 MMOL/L (3.5-5.1) Chloride Level 104 MMOL/L (98-107) Carbon Dioxide Level 19 MMOL/L (21-32) L Anion Gap 11 mmol/L (5-15) Blood Urea Nitrogen 18 mg/dL (7-18) Creatinine 2.0 MG/DL (0.55-1.30) H Estimat Glomerular Filtration Rate 42.9 mL/min (>60) Glucose Level 89 MG/DL (74-106) Calcium Level 7.5 MG/DL (8.5-10.1) L Magnesium Level 1.8 MG/DL (1.8-2.4) Urine Eosinophils None seen Current Medications Medications (Trade) Dose Ordered Sig/Adam Route PRN Reason Start Time Stop Time Status Last Admin Dose Admin Dextrose/Sodium Chloride 1,000 ml @ 50 mls/hr Q20H IV 03/17/17 11:30 04/16/17 11:29 03/17/17 11:56 Docusate Sodium (Colace) 100 mg THREE TIMES A DAY ORAL 03/16/17 18:00 04/15/17 17:59 03/18/17 13:06 Folic Acid (Folate) 2 mg DAILY ORAL 03/17/17 11:30 04/16/17 11:29 03/18/17 09:07 Pantoprazole (Protonix) 40 mg DAILY ORAL 03/17/17 09:00 04/16/17 08:59 03/18/17 09:07 Piperacillin Sod/ Tazobactam Sod 3.375 gm/Dextrose 55 ml @ 13.75 mls/ hr Q12HR IVPB 03/17/17 21:00 03/24/17 20:59 03/18/17 10:17 Polyethylene Glycol (Miralax) 17 gm BEDTIME ORAL 03/16/17 21:00 04/15/17 20:59 03/16/17 20:20 Propranolol HCl (Inderal) 10 mg BID ORAL 03/18/17 18:00 04/17/17 17:59 MAURIZIO ABREU Mar 18, 2017 13:16
[2017-03-18] MEDS ORDERED: 1/2 NS 1000ml IV ONE (13:38)
[2017-03-18] MEDS ORDERED: Tubing IV Secondary IV ONE (13:38)
[2017-03-18 16:04] VITALS: BP 123/80
[2017-03-18] MEDS: Propranolol 10mg tab ORAL SCH (17:02)
--- NOTE | 2017-03-18 19:04 | General Progress Note ---
Assessment/Plan Problem List: (1) Renal insufficiency ICD Codes: N28.9 - Disorder of kidney and ureter, unspecified SNOMED: 923851994, 195828490 (2) Liver cirrhosis ICD Codes: K74.60 - Unspecified cirrhosis of liver SNOMED: 49772952 Qualifiers: Qualified Codes: K74.60 - Unspecified cirrhosis of liver (3) Elevated LFTs ICD Codes: R79.89 - Other specified abnormal findings of blood chemistry SNOMED: 985230176, 630915634 (4) Anemia ICD Codes: D64.9 - Anemia, unspecified SNOMED: 483946207 (5) Ascites ICD Codes: R18.8 - Other ascites SNOMED: 215536642 (6) Hyponatremia ICD Codes: E87.1 - Hypo-osmolality and hyponatremia SNOMED: 19209982 Status: progressing Assessment/Plan afebrile ascite cirrhosis paracentesis per gi afebrile reviewed chart and labs Subjective ROS Limited/Unobtainable: Yes Allergies: Coded Allergies: No Known Allergies (Unverified , 03/16/17) Objective Last 24 Hour Vital Signs Date Time Temp Pulse Resp B/P (MAP) Pulse Ox O2 Delivery O2 Flow Rate FiO2 03/18/17 17:02 89 123/80 03/18/17 16:04 98.0 89 21 123/80 97 Room Air 03/18/17 12:15 98.1 89 22 127/84 100 Room Air 03/18/17 08:15 97.3 88 21 112/85 97 Room Air 03/18/17 03:57 97.6 87 20 120/79 99 Room Air 03/17/17 23:18 98.2 93 20 115/73 100 Room Air 03/17/17 20:17 97.6 87 20 134/88 100 Room Air Intake and Output 03/18/17 03/19/17 19:00 07:00 Intake Total 735.00 ml 200 ml Balance 735.00 ml 200 ml Intake Oral 480 ml 200 ml IV Total 255.00 ml Laboratory Tests 03/18/17 06:21: White Blood Count 14.5H, Red Blood Count 2.27L, Hemoglobin 8.8L, Hematocrit 25.8L, Mean Corpuscular Volume 114H, Mean Corpuscular Hemoglobin 38.8H, Mean Corpuscular Hemoglobin Concent 34.2, Red Cell Distribution Width 13.5, Platelet Count 206, Mean Platelet Volume 7.8, Neutrophils (%) (Auto) , Lymphocytes (%) ( Auto) , Monocytes (%) (Auto) , Eosinophils (%) (Auto) , Basophils (%) (Auto) , Differential Total Cells Counted 100, Neutrophils % (Manual) 72, Lymphocytes % ( Manual) 12L, Monocytes % (Manual) 11H, Eosinophils % (Manual) 5H, Basophils % ( Manual) 0, Band Neutrophils 0, Platelet Estimate Adequate, Platelet Morphology Normal, Hypochromasia 1+, Macrocytosis 1+, Sodium Level 134L, Potassium Level 3.9, Chloride Level 104, Carbon Dioxide Level 19L, Anion Gap 11, Blood Urea Nitrogen 18, Creatinine 2.0H, Estimat Glomerular Filtration Rate 42.9, Glucose Level 89, Calcium Level 7.5L, Magnesium Level 1.8 03/18/17 08:00: Urine Eosinophils None seen Height (Feet): 5 Height (Inches): 9.00 Weight (Pounds): 160 Neck: supple Respiratory/Chest: lungs clear Asha Vázquez MD Mar 18, 2017 19:04
[2017-03-18 20:00] VITALS: BP 119/84
[2017-03-18] MEDS: Miralax 17gm pkt ORAL SCH (21:00)
[2017-03-19] VITALS: BP 116/81
[2017-03-19 04:00] VITALS: BP 117/77
[2017-03-19] MEDS: D5NS 1,000 ML IV SCH (04:47)
[2017-03-19 07:15] LABS: MEAN CORPUSCULAR HEMOGLOBIN 37.9 PG (27.0-31.0); MEAN CORPUSCULAR HGB CONC 33.4 G/DL (32.0-36.0); MEAN CORPUSCULAR VOLUME 113 FL (80-99); MEAN PLATELET VOLUME 7.8 FL (6.5-10.1); PLATELET COUNT 216 K/UL (150-450); RED BLOOD COUNT 2.23 M/UL (4.70-6.10); RED CELL DISTRIBUTION WIDTH 13.3 % (11.6-14.8); WHITE BLOOD COUNT 15.3 K/UL (4.8-10.8)
[2017-03-19 07:48] LABS: ANION GAP 10 mmol/L (5-15); CALCIUM 7.1 MG/DL (8.5-10.1); CARBON DIOXIDE 18 MMOL/L (21-32); CHLORIDE 106 MMOL/L (98-107); GLOMERULAR FILTRATION RATE 42.9 mL/min (>60); POTASSIUM 3.5 MMOL/L (3.5-5.1); SODIUM 134 MMOL/L (136-145)
[2017-03-19 08:00] VITALS: BP 109/71
[2017-03-19] MEDS: Docusate 100mg cap ORAL SCH ×2 (08:24→13:00)
[2017-03-19] MEDS: Propranolol 10mg tab ORAL SCH (08:24)
[2017-03-19 09:00] LABS: BAND NEUTROPHILS % (MANUAL) 0 % (0-8); BASOPHILS % (MANUAL) 0 % (0-2); EOSINOPHILS % (MANUAL) 8 % (0-3); HYPOCHROMASIA 1+; LYMPHOCYTES % (MANUAL) 12 % (20-45); MACROCYTES 1+; NEUTROPHILS % (MANUAL) 71 % (45-75); PLATELET ESTIMATE ADEQUATE; PLATELET MORPHOLOGY NORMAL; TOTAL CELLS COUNTED 100
[2017-03-19 09:23] LABS: TOTAL PROTEIN 24HR URINE 192.5 G/24HR (< 0.1)
--- NOTE | 2017-03-19 11:16 | GI Progress Note ---
Assessment/Plan Problems: (1) Ascites ICD Codes: R18.8 - Other ascites SNOMED: 212716708 (2) Anemia ICD Codes: D64.9 - Anemia, unspecified SNOMED: 122424455 (3) Elevated LFTs ICD Codes: R79.89 - Other specified abnormal findings of blood chemistry SNOMED: 507964971, 577164676 (4) Liver cirrhosis ICD Codes: K74.60 - Unspecified cirrhosis of liver SNOMED: 01874343 Qualifiers: Qualified Codes: K74.60 - Unspecified cirrhosis of liver Status: stable Status Narrative Discussed with Dr. Roman. Assessment/Plan CT AP reviewed, see full report. - ascites - cirrhosis - colitis abdominal U/S reviewed >> Evidence of hepatic cirrhosis. Evidence of portal hypertension, with large amount of ascites, anterior abdominal wall varices. lipase WNL s/p paracentesis yielding 4.4L >> r/o SBP >> negative OB stool negative hep panel negative supportive care fu nephro recs dc home med norvasc 5mg >> start propranolol 10mg BID >> titrate prn monitor H&H, prn transfusions bowel regime >> colace, miralax ppi abx fu labs ETOH cessation teaching given recommend outpatient EGD/colonoscopy dc planning Subjective Subjective abdominal pain resolved Objective Last 24 Hour Vital Signs Date Time Temp Pulse Resp B/P (MAP) Pulse Ox O2 Delivery O2 Flow Rate FiO2 03/19/17 08:24 86 117/77 03/19/17 08:00 98.1 79 18 109/71 100 Room Air 03/19/17 04:00 99.5 86 18 117/77 98 Room Air 03/19/17 00:00 98.9 84 18 116/81 100 Room Air 03/18/17 20:00 99.6 89 18 119/84 100 Room Air 03/18/17 17:02 89 123/80 03/18/17 16:04 98.0 89 21 123/80 97 Room Air 03/18/17 12:15 98.1 89 22 127/84 100 Room Air Laboratory Tests Test 03/19/17 05:10 03/19/17 06:30 White Blood Count 15.3 K/UL (4.8-10.8) H Red Blood Count 2.23 M/UL (4.70-6.10) L Hemoglobin 8.5 G/DL (14.2-18.0) L Hematocrit 25.3 % (42.0-52.0) L Mean Corpuscular Volume 113 FL (80-99) H Mean Corpuscular Hemoglobin 37.9 PG (27.0-31.0) H Mean Corpuscular Hemoglobin Concent 33.4 G/DL (32.0-36.0) Red Cell Distribution Width 13.3 % (11.6-14.8) Platelet Count 216 K/UL (150-450) Mean Platelet Volume 7.8 FL (6.5-10.1) Neutrophils (%) (Auto) % (45.0-75.0) Lymphocytes (%) (Auto) % (20.0-45.0) Monocytes (%) (Auto) % (1.0-10.0) Eosinophils (%) (Auto) % (0.0-3.0) Basophils (%) (Auto) % (0.0-2.0) Differential Total Cells Counted 100 Neutrophils % (Manual) 71 % (45-75) Lymphocytes % (Manual) 12 % (20-45) L Monocytes % (Manual) 9 % (1-10) Eosinophils % (Manual) 8 % (0-3) H Basophils % (Manual) 0 % (0-2) Band Neutrophils 0 % (0-8) Platelet Estimate Adequate Platelet Morphology Normal Hypochromasia 1+ Macrocytosis 1+ Sodium Level 134 MMOL/L (136-145) L Potassium Level 3.5 MMOL/L (3.5-5.1) Chloride Level 106 MMOL/L (98-107) Carbon Dioxide Level 18 MMOL/L (21-32) L Anion Gap 10 mmol/L (5-15) Blood Urea Nitrogen 18 mg/dL (7-18) Creatinine 2.0 MG/DL (0.55-1.30) H Estimat Glomerular Filtration Rate 42.9 mL/min (>60) Glucose Level 109 MG/DL (74-106) H Calcium Level 7.1 MG/DL (8.5-10.1) L Urine Eosinophils None seen Height (Feet): 5 Height (Inches): 9.00 Weight (Pounds): 160 General Appearance: WD/WN, no apparent distress, alert Cardiovascular: normal rate Respiratory/Chest: normal breath sounds, no respiratory distress Abdominal Exam: normal bowel sounds, non tender, soft, ascites Extremities: normal range of motion, non-tender Angie Syed N.P. Mar 19, 2017 11:16
[2017-03-19 12:00] VITALS: BP 108/74
--- NOTE | 2017-03-19 13:29 | Infectious Diseases Prog Note ---
Assessment/Plan Assessment/Plan A; Leukocytosis Alcoholic cirrhosis Portal HPN Ascites Renal failure Anemia P; case was discussed with microbiology lab will f/u cultures Subjective ROS Limited/Unobtainable: No Constitutional: Reports: no symptoms Respiratory: Reports: no symptoms Cardiovascular: Reports: no symptoms Gastrointestinal/Abdominal: Reports: no symptoms Genitourinary: Reports: no symptoms Allergies: Coded Allergies: No Known Allergies (Unverified , 03/16/17) Objective Vital Signs Last 24 Hour Vital Signs Date Time Temp Pulse Resp B/P (MAP) Pulse Ox O2 Delivery O2 Flow Rate FiO2 03/19/17 08:24 86 117/77 03/19/17 08:00 98.1 79 18 109/71 100 Room Air 03/19/17 04:00 99.5 86 18 117/77 98 Room Air 03/19/17 00:00 98.9 84 18 116/81 100 Room Air 03/18/17 20:00 99.6 89 18 119/84 100 Room Air 03/18/17 17:02 89 123/80 03/18/17 16:04 98.0 89 21 123/80 97 Room Air Height (Feet): 5 Height (Inches): 9.00 Weight (Pounds): 160 General Appearance: no acute distress HEENT: mucous membranes moist Respiratory/Chest: lungs clear Cardiovascular: normal rate Abdomen: distended, other - asites Extremities: no edema Neurologic/Psychiatric: alert, oriented x 3, responsive Microbiology Date/Time Source Procedure Growth Status 03/16/17 16:17 Ascities Fluid Gram Stain - Final Resulted 03/16/17 16:17 Ascities Fluid Body Fluid Culture - Preliminary Resulted Laboratory Tests Test 03/19/17 05:10 03/19/17 06:30 White Blood Count 15.3 K/UL (4.8-10.8) H Red Blood Count 2.23 M/UL (4.70-6.10) L Hemoglobin 8.5 G/DL (14.2-18.0) L Hematocrit 25.3 % (42.0-52.0) L Mean Corpuscular Volume 113 FL (80-99) H Mean Corpuscular Hemoglobin 37.9 PG (27.0-31.0) H Mean Corpuscular Hemoglobin Concent 33.4 G/DL (32.0-36.0) Red Cell Distribution Width 13.3 % (11.6-14.8) Platelet Count 216 K/UL (150-450) Mean Platelet Volume 7.8 FL (6.5-10.1) Neutrophils (%) (Auto) % (45.0-75.0) Lymphocytes (%) (Auto) % (20.0-45.0) Monocytes (%) (Auto) % (1.0-10.0) Eosinophils (%) (Auto) % (0.0-3.0) Basophils (%) (Auto) % (0.0-2.0) Differential Total Cells Counted 100 Neutrophils % (Manual) 71 % (45-75) Lymphocytes % (Manual) 12 % (20-45) L Monocytes % (Manual) 9 % (1-10) Eosinophils % (Manual) 8 % (0-3) H Basophils % (Manual) 0 % (0-2) Band Neutrophils 0 % (0-8) Platelet Estimate Adequate Platelet Morphology Normal Hypochromasia 1+ Macrocytosis 1+ Sodium Level 134 MMOL/L (136-145) L Potassium Level 3.5 MMOL/L (3.5-5.1) Chloride Level 106 MMOL/L (98-107) Carbon Dioxide Level 18 MMOL/L (21-32) L Anion Gap 10 mmol/L (5-15) Blood Urea Nitrogen 18 mg/dL (7-18) Creatinine 2.0 MG/DL (0.55-1.30) H Estimat Glomerular Filtration Rate 42.9 mL/min (>60) Glucose Level 109 MG/DL (74-106) H Calcium Level 7.1 MG/DL (8.5-10.1) L Urine Eosinophils None seen Current Medications Medications (Trade) Dose Ordered Sig/Adam Route PRN Reason Start Time Stop Time Status Last Admin Dose Admin Dextrose/Sodium Chloride 1,000 ml @ 50 mls/hr Q20H IV 03/17/17 11:30 04/16/17 11:29 03/19/17 04:47 Docusate Sodium (Colace) 100 mg THREE TIMES A DAY ORAL 03/16/17 18:00 04/15/17 17:59 03/19/17 08:24 Folic Acid (Folate) 2 mg DAILY ORAL 03/17/17 11:30 04/16/17 11:29 03/19/17 08:24 Pantoprazole (Protonix) 40 mg DAILY ORAL 03/17/17 09:00 04/16/17 08:59 03/19/17 08:24 Polyethylene Glycol (Miralax) 17 gm BEDTIME ORAL 03/16/17 21:00 04/15/17 20:59 03/16/17 20:20 Propranolol HCl (Inderal) 10 mg BID ORAL 03/18/17 18:00 04/17/17 17:59 03/19/17 08:24 MAURIZIO ABREU Mar 19, 2017 13:28
--- NOTE | 2017-03-19 14:35 | Diagnostic Imaging Report ---
APPROVED REPORT CPT Code: 34971 Present Symptoms Comments: R/O DVT BILATERAL: Imaging reveals a patent deep venous system bilaterally. There is no evidence of thrombus within the femoral, popliteal or tibial segments. The greater saphenous veins are also within normal limits. Doppler indicates normal spontaneous flow within these segments.
--- NOTE | 2017-03-19 14:54 | General Progress Note ---
Assessment/Plan Assessment/Plan Assessment and Recs: # Anemia 2/2 chronic disease - anemia w/u has been reviewed, no e/o bleeding currently --> hgb goal is >7 --> OB stool negative --> hep panel negative ---> recommend outpatient EGD/colonoscopy per Gi # Leukocytosis likely a reactive process versus from infection, on abx --> monitor for improvement # Ascites with cirrhosis, CT AP reviewed, see full report. # Transamintis - abdominal U/S reviewed >> Evidence of hepatic cirrhosis. Evidence of portal hypertension, with large amount of ascites, anterior abdominal wall varices. --> s/p paracentesis yielding 4.4L >> r/o SBP >> negative # HTN - on propranolol now, have discontinued norvasc Subjective Date patient seen: Mar 19, 2017 Constitutional: Reports: no symptoms HEENT: Reports: no symptoms Cardiovascular: Reports: no symptoms Respiratory: Reports: no symptoms Gastrointestinal/Abdominal: Reports: no symptoms Genitourinary: Reports: no symptoms Neurologic/Psychiatric: Reports: no symptoms Hematologic/Lymphatic: Reports: anemia Allergies: Coded Allergies: No Known Allergies (Unverified , 03/16/17) Subjective no events, not bleeding Objective Last 24 Hour Vital Signs Date Time Temp Pulse Resp B/P (MAP) Pulse Ox O2 Delivery O2 Flow Rate FiO2 03/19/17 12:00 98.2 76 18 108/74 100 03/19/17 08:24 86 117/77 03/19/17 08:00 98.1 79 18 109/71 100 Room Air 03/19/17 04:00 99.5 86 18 117/77 98 Room Air 03/19/17 00:00 98.9 84 18 116/81 100 Room Air 03/18/17 20:00 99.6 89 18 119/84 100 Room Air 03/18/17 17:02 89 123/80 03/18/17 16:04 98.0 89 21 123/80 97 Room Air Intake and Output 03/19/17 03/20/17 19:00 07:00 Intake Total 250 ml Balance 250 ml IV Total 250 ml Laboratory Tests 03/19/17 05:10: White Blood Count 15.3H, Red Blood Count 2.23L, Hemoglobin 8.5L, Hematocrit 25.3L, Mean Corpuscular Volume 113H, Mean Corpuscular Hemoglobin 37.9H, Mean Corpuscular Hemoglobin Concent 33.4, Red Cell Distribution Width 13.3, Platelet Count 216, Mean Platelet Volume 7.8, Neutrophils (%) (Auto) , Lymphocytes (%) ( Auto) , Monocytes (%) (Auto) , Eosinophils (%) (Auto) , Basophils (%) (Auto) , Differential Total Cells Counted 100, Neutrophils % (Manual) 71, Lymphocytes % ( Manual) 12L, Monocytes % (Manual) 9, Eosinophils % (Manual) 8H, Basophils % ( Manual) 0, Band Neutrophils 0, Platelet Estimate Adequate, Platelet Morphology Normal, Hypochromasia 1+, Macrocytosis 1+, Sodium Level 134L, Potassium Level 3.5, Chloride Level 106, Carbon Dioxide Level 18L, Anion Gap 10, Blood Urea Nitrogen 18, Creatinine 2.0H, Estimat Glomerular Filtration Rate 42.9, Glucose Level 109H, Calcium Level 7.1L 03/19/17 06:30: Urine Eosinophils None seen Height (Feet): 5 Height (Inches): 9.00 Weight (Pounds): 160 General Appearance: alert EENT: PERRL/EOMI Neck: normal alignment Cardiovascular: regular rhythm Respiratory/Chest: lungs clear Abdomen: no organomegaly Genitourinary/Rectal: normal rectal exam Extremities: normal inspection Edema: 1+ Leg (L), 1+ Leg (R) Edema: mild edema Neurologic: alert Skin: warm/dry Ronald Goncalves Mar 19, 2017 14:54
--- NOTE | 2017-03-19 16:14 | Nephrology Progress Note ---
Assessment/Plan Problem List: (1) Renal insufficiency (2) Liver cirrhosis (3) Anemia (4) Ascites Assessment Renal failure : Acute vs Chronic - Liver cirrhosis, high Bili , Low Alb Elevated LFTs HTN history Cr at 2 Evidence of hepatic cirrhosis, with surface micro-nodularity, also reported on prior CT scan Evidence of portal hypertension, with large amount of ascites, anterior abdominal wall varices Cholelithiasis also reported on prior CT. Plan Plan: Optimize GI status Monitor renal paraameters Urine studies kidney TUAN negative on abdominal TUAN urine studies Subjective ROS Limited/Unobtainable: No Interval Events/Complaints seen at 10 am Objective Objective Last 24 Hour Vital Signs Date Time Temp Pulse Resp B/P (MAP) Pulse Ox O2 Delivery O2 Flow Rate FiO2 03/19/17 12:00 98.2 76 18 108/74 100 03/19/17 08:24 86 117/77 03/19/17 08:00 98.1 79 18 109/71 100 Room Air 03/19/17 04:00 99.5 86 18 117/77 98 Room Air 03/19/17 00:00 98.9 84 18 116/81 100 Room Air 03/18/17 20:00 99.6 89 18 119/84 100 Room Air 03/18/17 17:02 89 123/80 Intake and Output 03/19/17 03/20/17 19:00 07:00 Intake Total 250 ml Balance 250 ml IV Total 250 ml Laboratory Tests 03/19/17 05:10: White Blood Count 15.3H, Red Blood Count 2.23L, Hemoglobin 8.5L, Hematocrit 25.3L, Mean Corpuscular Volume 113H, Mean Corpuscular Hemoglobin 37.9H, Mean Corpuscular Hemoglobin Concent 33.4, Red Cell Distribution Width 13.3, Platelet Count 216, Mean Platelet Volume 7.8, Neutrophils (%) (Auto) , Lymphocytes (%) ( Auto) , Monocytes (%) (Auto) , Eosinophils (%) (Auto) , Basophils (%) (Auto) , Differential Total Cells Counted 100, Neutrophils % (Manual) 71, Lymphocytes % ( Manual) 12L, Monocytes % (Manual) 9, Eosinophils % (Manual) 8H, Basophils % ( Manual) 0, Band Neutrophils 0, Platelet Estimate Adequate, Platelet Morphology Normal, Hypochromasia 1+, Macrocytosis 1+, Sodium Level 134L, Potassium Level 3.5, Chloride Level 106, Carbon Dioxide Level 18L, Anion Gap 10, Blood Urea Nitrogen 18, Creatinine 2.0H, Estimat Glomerular Filtration Rate 42.9, Glucose Level 109H, Calcium Level 7.1L 03/19/17 06:30: Urine Eosinophils None seen Height (Feet): 5 Height (Inches): 9.00 Weight (Pounds): 160 General Appearance: no apparent distress Objective no other changes GILBERTO HAYES Mar 19, 2017 16:14
--- NOTE | 2017-03-22 12:29 | Discharge Summary ---
Discharge Summary Hospital Course Date of Admission Mar 16, 2017 at 11:58 Date of Discharge Mar 19, 2017 at 15:54 Admitting Diagnosis hypokalemia, arf, ascites HPI Elroy Chamorro is a 51 year old male who was admitted on Mar 16, 2017 at 11: 58 for Hypokalemia,Acute Renal Failure Hospital Course dc summary [id number] Discharge Medications Continued Medications: Amlodipine Besylate* (Amlodipine Besylate*) 5 Mg Tablet 5 MG ORAL DAILY, TAB Discharge Condition Upon Discharge: stable Discharge Disposition Patient was discharged to Home () Discharge Diagnoses: Discharge Instructions Discharge Instructions Special Instructions I have been assigned to complete a D/C Summary on this account. I was not involved in the patient management Indigo Abraham NP (Vanchtein) Mar 22, 2017 12:29
--- NOTE | 2017-03-22 17:45 | Discharge Summary 2 SIG ---
DATE OF ADMISSION: 03/16/2017 DATE OF DISCHARGE: 03/19/2017 REASON FOR ADMISSION: 52-year-old male with history of alcohol use, presented to emergency department for evaluation. The patient reported abdominal pain and abdominal distention for one month. Workup in the emergency room revealed leukocytosis. WBC - 13.1. Potassium -2.6, BUN -25, creatinine- 2.1. Total bilirubin -5.2, direct bilirubin -4.9. CT of the abdomen and pelvis revealed liver changes with slight surface nodularity indicative of early cirrhotic changes as well as the evidence of moderate ascites. The patient was admitted for liver cirrhosis, elevated LFT, and renal insufficiency. HOSPITAL COURSE: The patient was admitted. GI ,ID, nephrology, and hematology consults were requested. GI had seen and evaluated the patient. Paracentesis was ordered. The patient had subsequently undergone paracentesis which yielded 4.7 liters of ascitic fluid. The patient was on IV antibiotics while in the hospital. ID closely followed. Gram stain of the ascitic fluid revealed no organisms. Culture of ascitic fluid revealed streptococcus, alpha hemolytic gross 2+. Contaminant as per ID. The patient had subsequently undergone abdominal ultrasound as ordered by GI specialist. Abdominal ultrasound revealed hepatic cirrhosis, portal hypertension with large amount of ascites, anterior abdominal wall varices. Both kidneys demonstrated normal echogenicity, no hydronephrosis. Lipase was within normal limits. Albumin x1 given. Anemia workup was consistent with anemia of chronic disease. Stool OB was negative. Hemoglobin and hematocrit were closely monitored. Dental Ceramist followed. No need for transfusion at this admission, remained at the baseline. Bowel regimen instituted, PPI added to existed medication regimen. The patient was started on propranolol for esophageal varices. Norvasc was discontinued. GI recommended outpatient EGD and colonoscopy. While in the hospital, the patient was on antibiotic which discontinued upon discharge. Venous duplex of bilateral lower extremities was negative. Hepatitis panel was negative. Potassium was replaced and was stable. Creatinine slightly down from 2.1 to 2.0, more likely the patient had chronic renal insufficiency . Transaminitis was likely due to the evidence of hepatic cirrhosis. Bilirubin and LFTs were closely monitored and prior to discharge, total bilirubin down to 3.4, AST- 41. The patient was stable for discharge home. FINAL DIAGNOSES: 1. Ascites, status post paracentesis 2. Alcoholic liver cirrhosis. 3. Anemia of chronic disease. 4. Portal hypertension. 5. Transaminitis. 6. Leukocytosis. 7. Acute versus chronic renal failure DISCHARGE MEDICATIONS: See medication reconciliation list. DISCHARGE INSTRUCTIONS: The patient was discharged home. Follow up with primary medical doctor. Recommended outpatient colonoscopy and EGD. The patient was counseled on smoking cessation. Asha Vázquez M.D. I have been assigned to dictate discharge summary on this account and I was not involved in the patient's management. Indigo MelgozaHenry J. Carter Specialty Hospital And Nursing Facilityrhonda N.PCari DR: Briseida JOB#: [id number] CC: ANTHONY
== END 2017-03-19 15:54 | disposition home or self-care (01) | DRG 280 ==
LOC: EMR 09:31 → 4E 11:58 → EDBEDREQ 12:25
PROC: 0W9G3ZZ Drainage of Peritoneal Cavity, Percutaneous Approach (ICD-10-PCS; principal; 2017-03-16)
DX: K70.31 Alcoholic cirrhosis of liver with ascites (principal); N17.9 Acute kidney failure, unspecified; K76.6 Portal hypertension; E87.6 Hypokalemia; E86.0 Dehydration; N18.9 Chronic kidney disease, unspecified; D63.8 Anemia in other chronic diseases classified elsewhere; R74.0 Nonspecific elevation of levels of transaminase and lactic acid dehydrogenase [LDH]; F17.200 Nicotine dependence, unspecified, uncomplicated; F10.10 Alcohol abuse, uncomplicated
CPT/HCPCS: 36415; 74176; 76700; 76942; 80048; 80053; 80061; 81003; 81050; 82248; 82270; 82550; 82607; 82728; 82746; 82977; 83036; 83540; 83550; 83690; 83735; 83880; 84100; 84156; 84300; 84439; 84443; 84550; 85007; 85025; 85044; 85060; 85384; 85610; 85730; 86140; 86705; 86709; 86803; 87070; 87205; 87340; 88104; 89050; 93970; 99285; J8499